=== PATIENT | female | born 1970 | race Caucasian/White ===

== ENCOUNTER → 2016-11-14 | Day surgery (SDC) | payer OTHER ==
[~2016-11-14] MED LIST: LACTATED RINGER'S 1000 ML INJ 1,000 ML ONE; PROPOFOL 200 MG/20 ML AMP IV ONE
--- NOTE | 2016-11-14 08:26 | GIPROC ---
[facility] [address] [facility] - [place], [address] EGD PROCEDURE REPORT EXAM DATE: 11/14/2016 PATIENT NAME: Stacy Vazquez MR #: [id number] BIRTHDATE: 1970 ATTENDING: Juan C Sanchez MD ORDER #: [id number] DISH [employer]OTH INSPECTOR: Suzanne Murphy EXECUTIVE CASINO HOST STATUS: outpatient INDICATIONS: The patient is a 46 yr old female here for an EGD due to heartburn PROCEDURE PERFORMED: EGD w/ biopsy MEDICATIONS: None and Per Anesthesia. TOPICAL ANESTHETIC: none CONSENT: The patient understands the risks and benefits of the procedure and understands that these risks include, but are not limited to: sedation, allergic reaction, infection, perforation and/or bleeding. Alternative means of evaluation and treatment include, among others: physical exam, x-rays, and/or surgical intervention. The patient elects to proceed with this endoscopic procedure. medical equipment was checked for proper function. Hand hygiene and appropriate measures for infection prevention was taken. After the risks, benefits and alternatives of the procedure were thoroughly explained, Informed consent was verified, confirmed and timeout was successfully executed by the treatment team. The patient was anesthetized with anesthesia and the EG-[id number] ([id number]) endoscope was introduced through the mouth and advanced to the second portion of the duodenum. Biopsy of antrum for h. pylori. Retroflexed views revealed no abnormalities The gastroscope was then slowly withdrawn and removed. The endoscopy was otherwise normal. ADVERSE EVENTS: There were no complications. IMPRESSIONS: 1. Normal endoscopy otherwise 2. Retroflexed views revealed no abnormalities RECOMMENDATIONS: 1. Continue PPI 2. Await biopsy results. Biopsy results will not be ready for 7-10 days. If you don't hear from us in two weeks, call our office for biopsy results. PATIENT CONDITION: fair DISPOSITION: Home REPEAT EXAM: NONE Juan C Sanchez MD eSigned: Juan C Sanchez MD 11/14/2016 8:26 AM cc:
== END | disposition home or self-care (01) ==
LOC: ESDC 07:21
PROVIDERS: ATTEND Surgery
DX: R12 Heartburn (principal)
CPT/HCPCS: 00740; 43239; 88305; 88312; J3010; J7120; 88313

== ENCOUNTER 2017-02-18 05:28 | Inpatient (IN) | payer OTHER ==
[~2017-02-18] VITALS: Ht 165.1 cm; Wt 111.8 kg
[2017-02-18] MEDS ORDERED: SCOPOLAMINE 1.5 MG PATCH T-DERMAL SCH (06:15)
[2017-02-18] MEDS ORDERED: METOPROLOL TARTRATE 25 MG TAB PO PRN (06:15)
[2017-02-18] MEDS ORDERED: ceFAZolin 2 GM PREMIX 50 ML IV SCH (06:15)
[2017-02-18] MEDS ORDERED: ACETAMINOPHEN 1000 MG/100 ML 100 ML IV SCH (06:15)
[2017-02-18] MEDS ORDERED: POVIDONE IODINE 5% (ANTISEPSIS KIT) 4 APPLICATIONS EACH NARE PRN (06:15)
[2017-02-18] MEDS ORDERED: APREPITANT 40 MG CAP PO SCH (06:15)
[2017-02-18] MEDS ORDERED: SODIUM CHLORID 0.9% 500 ML IV PRN (06:15)
[2017-02-18] MEDS ORDERED: ONDANSETRON HCL 4 MG/2 ML VIAL IV PUSH SCH (06:15)
[2017-02-18] MEDS ORDERED: metroNIDAZOLE 500 MG INJ 100 ML IV SCH (06:15)
[2017-02-18] MEDS ORDERED: LACTATED RINGER'S 1000 ML IV PRN (06:15)
[2017-02-18] MEDS ORDERED: CHLORHEXIDINE GLUCONATE 2 % 1 PACK (2 CLOTHS) TOPICAL PRN (06:15)
[2017-02-18] MEDS ORDERED: OMEP20TA93 PO (07:54)
[2017-02-18] MEDS ORDERED: ALEV220T14 PO (07:54)
[2017-02-18] MEDS ORDERED: ERGO2000 PO (07:54)
[2017-02-18] MEDS ORDERED: BUPIVACAINE/EPINEPHRINE 0.25% PF 30 ML VIAL ONE (10:49)
[2017-02-18] MEDS ORDERED: ONDANSETRON HCL 4 MG/2 ML VIAL IV PUSH PRN (13:15)
[2017-02-18] MEDS ORDERED: SODIUM CHLORIDE 0.9% FLUSH 10 ML FLUSH IV FLUSH PRN (13:15)
[2017-02-18] MEDS ORDERED: Post-op Orders (for Pharmacy) MISC OTHER ONE (13:15)
[2017-02-18] MEDS ORDERED: ACETAMINOPHEN 325MG/HYDROcodone 7.5MG/15ML UDC PO PRN ×2 (13:15)
[2017-02-18] MEDS ORDERED: diphenhydrAMINE HCL ELIXIR 12.5 MG/5 ML CUP PO PRN (13:15)
[2017-02-18] MEDS ORDERED: diphenhydrAMINE HCL 50 MG/ML VIAL IV PUSH PRN (13:15)
[2017-02-18] MEDS ORDERED: ENALAPRILAT 1.25 MG/ML VIAL IV PUSH PRN (13:15)
[2017-02-18] MEDS ORDERED: NALOXONE HCL 0.4 MG/ML AMP IV PUSH PRN (13:15)
--- NOTE | 2017-02-18 13:16 | HHI.PR ---
Immediate Post Op Note Procedure Date: Feb 18, 2017 Pre Op Diagnosis: morbid obesity bmi 40, multiple comorbidities, adenomyosis Post Op Diagnosis: same Surgeon: Juan C Sanchez MD Collections Rep(s): Dr. Mayorga Procedure: lap chyna, lap sleeve Findings: adhesions to ruq, distended gallbladder, no leak with methylene blue Complications: none Specimen(s) removed: gallbladder Estimated blood loss: 10cc Anesthesia: General Drains: None Patient to: PACU Patient Condition: Good Juan C Sanchez MD Feb 18, 2017 13:16
[2017-02-18] MEDS ORDERED: *morphine SULFATE 8 MG/ML PERIprocedure ONLY ONE (13:31)
[2017-02-18] MEDS: D5-1/2 NS + KCL 20 MEQ INJ 1,000 ML IV SCH ×2 (13:40→21:43)
[2017-02-18] MEDS: ACETAMINOPHEN 1000 MG/100 ML 100 ML IV SCH ×2 (13:58→20:11)
[2017-02-18] MEDS ORDERED: METHYLENE BLUE 100 MG/10 ML VIAL OTHER ONE (14:00)
[2017-02-18] MEDS: METOCLOPRAMIDE HCL 10 MG/2 ML VIAL IV PUSH SCH ×2 (14:00→20:11)
[2017-02-18] MEDS: PANTOPRAZOLE SOD 40 MG DELAYED RELEASE TAB PO SCH (14:00)
[2017-02-18] MEDS: MORPHINE SULFATE 30 MG/30 ML PCA IV SCH ×2 (14:07→20:30)
[2017-02-18] MEDS ORDERED: DO NOT ADM ANY ANTICOAGULANT DRUGS PRN (14:15)
[2017-02-18] MEDS: metroNIDAZOLE 500 MG INJ 100 ML IV SCH ×2 (15:00→21:43)
[2017-02-18] MEDS ORDERED: ENOXAPARIN SODIUM 40 MG/0.4 ML SYRINGE SQ SCH (17:00)
[2017-02-18 17:23] VITALS: BP 100/61; PULSE 99; RESP 18; TEMP 96.1; O2SAT 91
[2017-02-18 20:27] VITALS: RESP 18
[2017-02-18] MEDS: SODIUM CHLORIDE 0.9% FLUSH 10 ML FLUSH IV FLUSH SCH (20:30)
[2017-02-18] MEDS: PCA - TOTAL MG MORPHINE DELIVERED PER SHIFT SCH (22:00)
[2017-02-18 23:41] VITALS: BP 117/66; PULSE 91; RESP 20; TEMP 99; O2SAT 93
[2017-02-19] VITALS: BP 116/65; PULSE 95; RESP 20; TEMP 97.9; O2SAT 92
[2017-02-19] MEDS: METOCLOPRAMIDE HCL 10 MG/2 ML VIAL IV PUSH SCH ×2 (01:51→09:13)
[2017-02-19] MEDS: ACETAMINOPHEN 1000 MG/100 ML 100 ML IV SCH ×2 (01:52→09:12)
[2017-02-19] MEDS: metroNIDAZOLE 500 MG INJ 100 ML IV SCH (05:35)
[2017-02-19] MEDS: PCA - TOTAL MG MORPHINE DELIVERED PER SHIFT SCH ×2 (06:00→14:00)
[2017-02-19 06:39] VITALS: RESP 18
--- NOTE | 2017-02-19 06:48 | MP ---
cc: DESIREE SANCHEZ MD DATE OF SURGERY 02/18/2017 PREOPERATIVE DIAGNOSIS Morbid obesity, BMI of 40, multiple comorbidities including reflux and adenomyosis of gallbladder. POSTOPERATIVE DIAGNOSIS Morbid obesity, BMI of 40, multiple comorbidities including reflux and adenomyosis of gallbladder. PROCEDURE PERFORMED 1. Laparoscopic sleeve gastrectomy 2. Laparoscopic cholecystectomy SURGEON Dr. Desiree Sanchez HEMATOLOGIST Dr. Haim Mayorga needed due to the complexity of the case. Dr. Mayorga was necessary for retraction and assistance. ANESTHESIA GETA IV FLUIDS See anesthesia sheet ESTIMATED BLOOD LOSS 10 cc DRAINS None COMPLICATIONS None SPECIMENS Gallbladder WOUND CLASSIFICATION Clean, contaminated INDICATIONS The patient is a 46-year-old female who presents with multiple comorbidities including morbid obesity, reflux and a BMI of 40. The patient with multiple attempts at weight loss without success, therefore a decision was made for a laparoscopic sleeve gastrectomy. The patient also had some right-sided pain with gallbladder ultrasound showing adenomyosis, therefore a decision was made also for a laparoscopic cholecystectomy. PROCEDURE OF THE DETAIL The patient was taken to the operative suite, placed in the supine position. She was prepped and draped in the usual sterile fashion after induction of general endotracheal anesthesia. A brief time-out done stating correct patient, procedure surgical site and we were all in agreement with this. Attention directed to the subxyphoid 15 cm distal. A local anesthetic injected. A 5 mm Visiport Optiview done to enter the abdomen. Pneumoperitoneum obtained to 15 mm. On cursory inspection, no evidence of injury. Several other ports placed including a right upper quadrant liver retractor, a lower quadrant 15 mm port, a left lower quadrant 5 mm port, a left upper quadrant 5 mm port and an epigastric 5 mm port. The patient then placed in reverse Trendelenburg and airplaned to the left. The right upper quadrant of the abdomen was identified and the liver was noted to have multiple adhesions with omentum stuck obstructing the view of the gallbladder initially. These were dissected out. The gallbladder was identified. Gallbladder fundus was grasped and retracted cephalad. The gallbladder was dissected out to the cystic duct and cystic artery in the usual fashion. Two clips were placed proximal and one distal to the cystic duct and cystic artery and these were transected with the Harmonic. The gallbladder removed from the gallbladder fossa with hook electro Bovie cautery. The gallbladder was then removed from the 15 mm port. Hemostasis was obtained. Suction irrigation done as well. Next, then we transitioned to the sleeve gastrectomy. The trent-flex was placed and the patient was then airplaned to the right now. The left lobe of the liver was retracted using the trent-flex. The vasculature along the greater curve of the stomach was then transected with a harmonic scalpel approximately 5 cm from the pylorus and carried all the way up to the angle of His. The angle of His was taken down bluntly. The posterior ligamentous attachments to the stomach were taken as well. A 36-[place] ViSiGi bougie was placed and advanced. Division of the stomach was done in order to create the sleeve gastrectomy approximately 5 cm from the pylorus all the way up to the angle of His approximately 2 cm from the JE junction. A 36-[place] ViSiGi was used as a calibration device. The Endo-DEMETRIS stapler was used initially black load, followed by green load and gold loads. This was reinforced with Seamguard. Again, this was done to approximately 2 cm from the incisura and 1 cm from the GE junction. Next, methylene blue was instilled without evidence of leaking. Following this, the gastrocolic ligament was then sutured to the Seamguard staple lines using a running Stratafix single directional suture. Next, Evicel used for a hemostatic agent to the staple line. The liver retractor was removed. The stomach sleeve was grasped and removed through the 15-mm port. Next, the 15 mm port was closed with a [id number] 0 Vicryl using a suture passer device. Following this, the pneumoperitoneum was removed and trocars were removed. The skin was closed with a subcuticular layer with 4-0 Monocryl followed by sterile dressings. All lap and instrument counts were correct at the end of the procedure. The patient tolerated procedure. No intraoperative complications. The patient was extubated and taken stable to the PACU. FINDINGS No evidence of leaking with methylene blue to the sleeve gastrectomy, distended gallbladder, several adhesions encompassing the gallbladder. MD BHUMI Bear/CARIDAD /7:30 PM /6:27 AM
[2017-02-19 07:06] LABS: AUTOMATED NEUTROPHIL # 16.1 TH/MM3 (1.8-7.7); BASOPHIL % 0.1 % (0.0-2.0); HEMATOCRIT 38.1 % (35.0-46.0); HEMO FLAGS DIFF FINAL; LYMPH % 8.5 % (9.0-44.0); LYMPHOCYTE # 1.6 TH/MM3 (1.0-4.8); MEAN CELL VOLUME 93.2 FL (80.0-100.0); MEAN CORPUSCULAR HEMOGLOBIN 31.6 PG (27.0-34.0); MONO % 4.9 % (0.0-8.0); NEUT % 86.5 % (16.0-70.0); PLATELET COUNT 300 TH/MM3 (150-450); RED BLOOD COUNT 4.09 MIL/MM3 (4.00-5.30); RED CELL DISTRIBUTION WIDTH 13.5 % (11.6-17.2); WHITE BLOOD COUNT 18.6 TH/MM3 (4.0-11.0)
[2017-02-19 07:33] LABS: BICARBONATE 23.5 MEQ/L (21.0-32.0); MAGNESIUM 1.7 MG/DL (1.5-2.5)
[2017-02-19 08:00] VITALS: BP 125/81; PULSE 84; RESP 17; TEMP 98.1; O2SAT 94
[2017-02-19 09:10] VITALS: RESP 17
[2017-02-19] MEDS: D5-1/2 NS + KCL 20 MEQ INJ 1,000 ML IV SCH ×2 (09:10→14:00)
[2017-02-19] MEDS: PANTOPRAZOLE SOD 40 MG DELAYED RELEASE TAB PO SCH (09:12)
[2017-02-19] MEDS: SODIUM CHLORIDE 0.9% FLUSH 10 ML FLUSH IV FLUSH SCH (09:13)
[2017-02-19] MEDS: MORPHINE SULFATE 30 MG/30 ML PCA IV SCH (09:46)
[2017-02-19] MEDS ORDERED: SUCRALFATE 1 GM/10 ML CUP PO ONE (11:30)
[2017-02-19 12:00] VITALS: BP 113/68; PULSE 63; RESP 17; TEMP 97.5; O2SAT 95
[2017-02-19] MEDS ORDERED: METOCLOPRAMIDE HCL 10 MG/2 ML VIAL IV PUSH PRN (14:00)
[2017-02-19 16:00] VITALS: BP 137/83; PULSE 84; RESP 17; TEMP 97.2; O2SAT 95
--- NOTE | 2017-02-19 16:12 | HHI.PR ---
Subjective Subjective Notes Sitting up in chair Pain and nausea controlled C/O 'burning' with broth, otherwise tolerating PO intake Objective Vitals/I&O Vital Signs Date Time Temp Pulse Resp B/P (MAP) Pulse Ox O2 Delivery O2 Flow Rate FiO2 02/19/17 16:00 97.2 84 17 137/83 (101) 95 02/18/17 16:14 Nasal Cannula 2 Labs Laboratory Tests Test 02/19/17 05:51 White Blood Count 18.6 Red Blood Count 4.09 Hemoglobin 12.9 Hematocrit 38.1 Mean Corpuscular Volume 93.2 Mean Corpuscular Hemoglobin 31.6 Mean Corpuscular Hemoglobin Concent 34.0 Red Cell Distribution Width 13.5 Platelet Count 300 Mean Platelet Volume 9.4 Neutrophils (%) (Auto) 86.5 Lymphocytes (%) (Auto) 8.5 Monocytes (%) (Auto) 4.9 Eosinophils (%) (Auto) 0.0 Basophils (%) (Auto) 0.1 Neutrophils # (Auto) 16.1 Lymphocytes # (Auto) 1.6 Monocytes # (Auto) 0.9 Eosinophils # (Auto) 0.0 Basophils # (Auto) 0.0 CBC Comment DIFF FINAL Differential Comment Blood Urea Nitrogen 14 Creatinine 0.92 Random Glucose 136 Calcium Level 8.7 Magnesium Level 1.7 Sodium Level 133 Potassium Level 5.0 Chloride Level 101 Carbon Dioxide Level 23.5 Anion Gap 9 Estimat Glomerular Filtration Rate 66 Abdomen: Post-op tenderness Extremities: Perfused Wound Wound : Wound Location: Abdomen Appearance: Clean & Dry A/P Assessment and Plan 46yo F POD#1 laparoscopic VSG with cholecystectomy -Continue with Carafate QID -Continue with frequent ambulation -Continue to increase fluids as tolerated Discharge Planning D/C home today Attending Statement patient seen at bedside doing well some epigastric burning carafate ppi encourage oob d/c planning Attestation The exam, history, and the medical decision-making described in the above note were completed with the assistance of the mid-level provider. I reviewed and agree with the findings presented. I attest that I had a [id number] encounter with the patient on the same day, and personally performed and documented my assessment and findings in the medical record. Waleska Crews Feb 19, 2017 16:12 Juan C Sanchez MD Feb 23, 2017 05:08
== END 2017-02-19 17:18 | disposition home or self-care (01) | DRG 621 ==
LOC: HSDC 05:28 → EDSTATUS 09:30 → HSDI 12:01 → N07A 16:57
PROVIDERS: ADMIT Surgery; ATTEND Surgery
PROC: 0DB64Z3 Excision of Stomach, Percutaneous Endoscopic Approach, Vertical (ICD-10-PCS; principal; 2017-02-18 10:39)
PROC: 0FT44ZZ Resection of Gallbladder, Percutaneous Endoscopic Approach (ICD-10-PCS; 2017-02-18 10:39)
DX: E66.01 Morbid (severe) obesity due to excess calories (principal); K21.9 Gastro-esophageal reflux disease without esophagitis; K82.8 Other specified diseases of gallbladder; Z68.41 Body mass index [BMI] 40.0-44.9, adult; K66.0 Peritoneal adhesions (postprocedural) (postinfection)
CPT/HCPCS: 80048; 83735; 85025; 88304; J0131; J0690; J1650; J2270; J2405; J2765; J3480; J7120; J8501